=== PATIENT | female | born 1965 | race Caucasian/White ===

== ENCOUNTER 2020-07-26 12:47 | Outpatient (NON) | payer BC, SELFPAY ==
[2020-07-27 01:18] LABS: SARS-CoV-2 RNA PCR Positive
== END 2020-07-26 12:48 ==
LOC: ANHCOVIDDT 12:50
PROVIDERS: PCP Family Medicine; Visit Provider Nurse Practitioner Family
DX: U07.1 COVID-19 (principal); R51.9 Headache, unspecified; J34.89 Other specified disorders of nose and nasal sinuses; R19.7 Diarrhea, unspecified; R43.8 Other disturbances of smell and taste
CPT/HCPCS: 87635; C9803; U0003

== ENCOUNTER 2020-08-06 19:56 | Emergency (ER) | payer BC, SELFPAY ==
[2020-08-06] VITALS (11 sets, daily range): BP systolic 142–164; BP diastolic 85–102; PULSE 67–94; RESP 16–32; TEMP 36.2; O2SAT 97–100
--- NOTE | ~2020-08-06 | XR_ITS ---
EXAMINATION: XR chest 1V portable DATE: 08/06/2020 20:52 INDICATION: COVID positive. Elevated across the chest. TECHNIQUE: frontal view of the chest was obtained. COMPARISON: None FINDINGS: Small calcified nodule at the lateral left midlung zone. No other airspace opacities, pulmonary edema , pleural effusion or pneumothorax. The cardiomediastinal silhouette is normal. Cholecystectomy clips in right upper quadrant. IMPRESSION: 1. No acute cardiopulmonary disease. Reviewed, dictated and finalized at location A. MOUNTER
--- NOTE | 2020-08-06 20:17 | ED.NEUROSD ---
HPI - Neuro Symptoms/Deficit General Chief Complaint: Neuro Symptoms/Deficit Stated Complaint: chest pressure and left upper arm pain Time Seen by Provider: 08/06/20 20:17 History of Present Illness HPI Narrative: 55 oy female presents from home for chest pain. She reports that she was diagnosed with COVID-19 2 weeks ago and she has mostly recovered, but she continues to have intermittent sharp chest pain. Worse with taking a deep breath. Today she became concerned because she also derveloped a band like pressure in the left upper arm. Her pain is mild. No SOB, fever, cough. She does report strange sensation in other parts of her body since being diagnosed with COVID. Related Data Allergies Allergy/AdvReac Type Severity Reaction Status Date / Time No Known Allergies Allergy Unverified 09/30/18 08:47 Review of Systems Review of Systems: All systems reviewed & are unremarkable except as noted in HPI and below Constitutional: Constitutional: Denies chills, Denies fever(s) and Denies weakness ENT: Denies sore throat Cardiovascular: Cardiovascular: Reports chest pain and Reports radiating jaw, neck or arm pain Respiratory: Respiratory: Denies dyspnea Gastrointestinal: Gastrointestinal: Denies abdominal pain, Denies nausea and Denies vomiting Neurologic: Denies confusion, Reports numbness and Denies weakness Psychiatric: Psychiatric: Reports anxiety PMFSH Past Medical History Medical History HTN (hypertension) Social History Social History Smoking status: Never smoker Gender identity (if verbalized by the patient): Female Exam Const: General: healthy appearing, no acute distress and alert Orientation/consciousness: patient oriented x3 HENMT: Head: normal to inspection Neck: Neck: normal visual inspection and no lymphadenopathy Chest: Chest palpation & inspection: tenderness sternum Resp: Effort & Inspection: normal respiratory effort Auscultation: clear to auscultation bilaterally, no rales, no rhonchi and no wheezes Cardio: Jugular venous distension: no JVD Rate: regular rate Rhythm: regular rhythm Heart sounds: no murmurs GI: Inspection: non-distended GI Palp: Yes Soft to palpation and No Tenderness to palpation present (GI) Skin: General skin exam: normal color Neuro: General: patient oriented x3 and moves all extremities Speech: normal speech Extrem: General: no edema Psych: Appearance: well kempt Affect: normal affect Course Vital Signs Vital signs: Vital Signs Temperature 36.2 C L 08/06/20 20:05 Pulse Rate 94 08/06/20 20:05 Respiratory Rate 17 08/06/20 20:05 Blood Pressure 158/100 H 08/06/20 20:05 Pulse Oximetry 100 08/06/20 20:05 Temperature 36.2 C L 08/06/20 20:05 Pulse Rate 74 08/06/20 21:16 Respiratory Rate 24 H 08/06/20 21:16 Blood Pressure 156/89 H 08/06/20 21:16 Pulse Oximetry 99 08/06/20 21:16 MDM - Neuro Symptoms/Deficit Medical Records Attestation: I reviewed the patient's medical records. Lab Data Attestation: I reviewed the patient's lab results. Result diagrams: 08/06/20 20:49 08/06/20 20:49 Labs: Lab Results 08/06/20 08/06/20 08/06/20 Range/Units 20:49 20:49 20:49 WBC 8.2 (4.5-10.0) K/mm3 RBC 4.43 (4.2-5.4) M/mm3 Hgb 13.2 (12.0-15.0) g/dL Hct 38.5 (37.0-47.0) % MCV 86.9 (80-100) fl MCH 29.8 (26-34) pg MCHC 34.3 (32-36) g/dl RDW 12.6 (11.5-14.5) % Plt Count 313 (150-375) k/mm3 MPV 9.0 (7.4-10.4) fl Immature Gran % (Auto) 0.2 (0-0.5) % Neut % (Auto) 59.0 (45.5-73.1) % Lymph % (Auto) 32.0 (18.3-44.2) % [place] % (Auto) 8.0 (2.6-8.5) % Eos % (Auto) 0.6 (0-4.4) % Baso % (Auto) 0.2 (0.2-1.2) % Lymph # (Auto) 2.63 (0.9-3.2) K/mm3 [place] # (Auto) 0.7 H (0.1-0.6) K/mm3 Eos # (Auto) 0.1 (0-0.3)
--- NOTE | 2020-08-06 20:30 | PC.NURSE ---
patient here with arm tingling. see triage notes. no change in patient's condition since initial assessment completed. resting on stretcher. on library monitor. alert. oriented. work up started. assessments documented. call light in reach.
[2020-08-06 21:11] LABS: Basophils Percent Auto 0.2 % (0.2-1.2); Eosinophils Absolute Auto 0.1 K/mm3 (0-0.3); Eosinophils Percent Auto 0.6 % (0-4.4); Hematocrit 38.5 % (37.0-47.0); Hemoglobin 13.2 g/dL (12.0-15.0); Immature Granulocyte Absolute 0.02 K/mm3 (0.00-0.031); Immature Granulocyte Percent A 0.2 % (0-0.5); Lymphocytes Absolute Auto 2.63 K/mm3 (0.9-3.2); Mean Corpuscular HGB Conc 34.3 g/dl (32-36); Mean Corpuscular Hemoglobin 29.8 pg (26-34); Mean Corpuscular Volume 86.9 fl (80-100); Monocytes Absolute Auto 0.7 K/mm3 (0.1-0.6); Neutrophils Absolute Auto 4.9 K/mm3 (1.3-6.7); Platelet Count Result 313 k/mm3 (150-375); Red Blood Count 4.43 M/mm3 (4.2-5.4); Red Cell Distribution Width 12.6 % (11.5-14.5); White Blood Count 8.2 K/mm3 (4.5-10.0)
[2020-08-06 21:23] LABS: INR 0.9; Partial Thromboplastin Time 22.3 SECONDS (22.3-36.8); Prothrombin Time 13.1 Seconds (11.1-14.7)
[2020-08-06 21:24] LABS: Anion Gap 6 mmol/L (8-16); Blood Urea Nitrogen 9 mg/dL (7-17); Calcium 8.8 mg/dL (8.4-10.2); Carbon Dioxide 30 mmol/L (22-30); Chloride 104 mmol/L (98-107); Estimated CRCL calculation 65 ml/min; Estimated Glomerular Filt Rate > 60; Glucose 110 mg/dL (65-105); Sodium 140 mmol/L (137-145)
--- NOTE | 2020-08-06 21:24 | ECG_ITS ---
Measurements Intervals Breaks Rate: 67 P: 22 ID: [id number] QRS: 5 QRSD: 100 T: 27 QT: 396 QTc: 419 Interpretive Statements SINUS RHYTHM BASELINE WANDER- I, II NORMAL ECG Electronically Signed On 08-07-2020 7:39:55 [employer] ENGINEER by Mayco Montiel D.O.
[2020-08-06 21:34] LABS: Troponin I < 0.012 ng/mL (0.000-0.034)
--- NOTE | 2020-08-06 21:36 | PC.NURSE ---
ED techs in room for EKG.
--- NOTE | 2020-08-06 21:55 | PC.NURSE ---
patient's updated. sitting in his car in parking lot but walked inside for an update.
[2020-08-06] MEDS: POTASSIUM CHLORIDE 20 MEQ PACKET (FOR LIQUID) 40 MEQ PO (22:01)
== END 2020-08-06 22:10 | disposition home or self-care (01) ==
PROVIDERS: Emergency Provider Emergency Medicine; PCP Family Medicine
DX: R07.9 Chest pain, unspecified (principal); I10 Essential (primary) hypertension; Z86.19 Personal history of other infectious and parasitic diseases
CPT/HCPCS: 36415; 71045; 80048; 84484; 85025; 85610; 85730; 93005; 99284; A9270

== ENCOUNTER 2022-04-22 08:01 | Outpatient (CLI) | payer BC, SELFPAY ==
--- NOTE | ~2022-04-22 | MM_ITS ---
EXAMINATION: MM screening tim BI w [facility] HISTORY: Screening TECHNIQUE: Craniocaudal and mediolateral oblique 3-D tomosynthesis images were obtained and synthetic 2-D images were generated. CAD analysis was submitted and interpreted. COMPARISON: Comparison to multiple prior studies sequentially, with oldest reviewed study dated 08/03. BREAST PARENCHYMAL COMPOSITION: There are scattered areas of fibroglandular density. FINDINGS: There are new bilateral breast asymmetries. There are no suspicious clustered calcification s or skin thickening. IMPRESSION: 1. New bilateral breast asymmetries, best seen on MLO views. 2. Additional mammographic views and possible breast ultrasound are recommended. BI-RADS Category 0: Incomplete: Needs additional imaging evaluation. Reviewed, dictated and finalized at location A. IMPRESSION: 1. New bilateral breast asymmetries, best seen on MLO views. 2. Additional mammographic views and possible breast ultrasound are recommended . BI-RADS Category 0: Incomplete: Needs additional imaging evaluation.
== END 2022-04-22 08:02 | disposition home or self-care (01) ==
PROVIDERS: PCP Family Medicine; Visit Provider Family Medicine
DX: Z12.31 Encounter for screening mammogram for malignant neoplasm of breast (principal); R92.8 Other abnormal and inconclusive findings on diagnostic imaging of breast
CPT/HCPCS: 77063; 77067

== ENCOUNTER 2022-06-06 13:51 | Outpatient (CLI) | payer BC, SELFPAY ==
--- NOTE | ~2022-06-06 | MMUS_ITS ---
EXAMINATION: MM diagnostic tim BI w [place], US breast BI limited HISTORY: Bilateral asymmetries on screening mammogram TECHNIQUE: Additional 3-D tomosynthesis images of the breasts were performed and synthetic 2-D images were generated. CAD analysis was submitted and interpreted. High resolution limited bilateral breast ultrasound was performed. COMPARISON: 04/22/2022, 09/17/2018, 12/29/2016 BREAST PARENCHYMAL COMPOSITION: There are scattered areas of fibroglandular density. FINDINGS: MAMMOGRAPHIC FINDINGS: Left breast: There is a persistent asymmetry in the middle third of the upper breast 4 cm from the ni pple on the mediolateral oblique view. No suspicious architectural distortion or calcification are id entified. Right breast: There is a persistent asymmetry in the anterior third of the upper breast 2.5 cm from t he nipple on the mediolateral oblique view. ULTRASOUND: There is no evidence of focal abnormal solid or cystic mass in the vicinity of the mammographic findi ng in either breast. IMPRESSION: 1. Probably benign bilateral breast asymmetries without suspicious sonographic correlate. 2. Recommend 6 month follow-up bilateral diagnostic mammogram and possible ultrasound. BI-RADS category 3, probably benign findings. Reviewed, dictated and finalized at location A. IMPRESSION: 1. Probably benign bilateral breast asymmetries without suspicious sonographic correlate. 2. Recommend 6 month follow-up bilateral diagnostic mammogram and possible ultr asound. BI-RADS category 3, probably benign findings.
== END 2022-06-06 13:52 | disposition home or self-care (01) ==
PROVIDERS: PCP Family Medicine; Visit Provider Family Medicine
DX: R92.8 Other abnormal and inconclusive findings on diagnostic imaging of breast (principal)
CPT/HCPCS: 76642; 77062; 77066; G0279